=== PATIENT | female | born 1995 | race African-American/Black ===

== ENCOUNTER 2019-01-26 05:45 | Inpatient (IN) | payer OTHER ==
[2019-01-26] MEDS ORDERED: LACTATED RINGER'S 1,000 ML IV ×2 (06:03)
[2019-01-26] MEDS ORDERED: MISOPROSTOL 200 MCG TAB PR ×2 (06:30→07:30)
[2019-01-26] MEDS ORDERED: LIDOCAINE 1% (MPF) 30 ML INJ INJ (06:30)
[2019-01-26] MEDS ORDERED: METHYLERGONOVINE 0.2 MG INJ IM ×2 (06:30→07:30)
[2019-01-26] MEDS ORDERED: BUTORPHANOL 2 MG INJ IV (06:30)
[2019-01-26] MEDS ORDERED: OXYTOCIN 30 UNITS/LR 500 ML IV ×4 (06:30→07:30)
[2019-01-26] MEDS ORDERED: AMPICILLIN 2 GM/NS (PMX) 100 ML IV (06:30)
[2019-01-26] MEDS ORDERED: CARBOPROST 250 MCG INJ IM ×2 (06:30→07:30)
[2019-01-26] MEDS: OXYTOCIN 10 UNIT INJ IM (06:38)
[2019-01-26] MEDS: IBUPROFEN 600 MG TAB PO ×5 (06:40→23:53)
[2019-01-26] MEDS: OXYTOCIN 30 UNITS/LR 500 ML IV (07:15)
[2019-01-26] MEDS ORDERED: LANOLIN HPA 1 PKT TOP (07:30)
[2019-01-26] MEDS ORDERED: HYDROCODONE/APAP (5/325) TAB PO (07:30)
[2019-01-26] MEDS ORDERED: DIPHENHYDRAMINE 25 MG CAP PO (07:30)
[2019-01-26] MEDS ORDERED: NACL 0.9% 3 ML SYG IV (07:30)
[2019-01-26] MEDS ORDERED: WITCH HAZEL/GLYCERIN PAD PR (07:30)
[2019-01-26] MEDS ORDERED: ZOLPIDEM 5 MG TAB PO (07:30)
[2019-01-26] MEDS ORDERED: ONDANSETRON 4 MG INJ IV (07:30)
[2019-01-26] MEDS ORDERED: AMPICILLIN 1 GM/NS (PMX) 50 ML IV (10:30)
[2019-01-26] MEDS: SENNA/DOCUSATE NA (8.6MG/50MG) TAB PO ×2 (11:00→21:26)
[2019-01-27] MEDS: IBUPROFEN 600 MG TAB PO ×3 (05:33→17:03)
[2019-01-27] MEDS: SENNA/DOCUSATE NA (8.6MG/50MG) TAB PO ×2 (09:04→21:00)
== END 2019-01-27 22:30 | disposition left against medical advice (07) | DRG 807 ==
LOC: OBT 05:45 → L-D 05:45 → OBT 05:49 → L-D 05:49 → PP1 08:04
PROC: 10E0XZZ Delivery of Products of Conception, External Approach (ICD-10-PCS; principal; 2019-01-26)
DX: O62.3 Precipitate labor (principal); Z37.0 Single live birth; Z3A.39 39 weeks gestation of pregnancy; O70.0 First degree perineal laceration during delivery
CPT/HCPCS: 88307